=== PATIENT | female | born 1995 | race Caucasian/White ===

== ENCOUNTER 2020-09-08 12:45 | Inpatient (IN) | payer OTHER ==
[~2020-09-08] VITALS: Ht 162.6 cm; Wt 84.8 kg
[2020-09-08] MEDS ORDERED: RINGERS SOLUTION,LACTATED 1,000 ML IV PRN (13:00)
[2020-09-08] MEDS ORDERED: LIDOCAINE/PF 1% 30 ML VIAL SQ PRN (13:00)
[2020-09-08] MEDS ORDERED: FentaNYL CITRATE PF 100 MCG/2 ML VIAL IVP PRN (13:00)
[2020-09-08] MEDS ORDERED: CITRIC ACID/SODIUM CITRATE 30 ML SOLUTION UDCUP PO PRN (13:00)
[2020-09-08] MEDS ORDERED: METOCLOPRAMIDE HCL 5 MG/ML 2 ML VIAL IVP PRN (13:00)
[2020-09-08] MEDS ORDERED: PREN-217 PO (13:05)
[2020-09-08 13:11] VITALS: BP 141/73
[2020-09-08] MEDS: RINGERS SOLUTION,LACTATED 1,000 ML IV SCH ×2 (13:36→20:30)
[2020-09-08 13:39] LABS: BASOPHILS % (AUTO) 0.6 % (0.0-2.0); EOSINOPHILS % (AUTO) 0.9 % (1.0-6.0); HEMATOCRIT 31.7 % (36-46); HEMOGLOBIN 10.2 g/dL (12.0-16.0); LYMPHOCYTES # (AUTO) 1.7 K/uL (1.0-4.8); LYMPHOCYTES % (AUTO) 22.1 % (22.0-44.0); MEAN CORPUSCULAR HEMOGLOBIN 26.4 pg (26.0-34.0); MEAN CORPUSCULAR HGB CONC 32.2 G/dL (31.0-37.0); MEAN CORPUSCULAR VOLUME 82 fL (80-100); MONOCYTES # (AUTO) 0.9 K/uL (0.1-1.0); MONOCYTES % (AUTO) 11.2 % (2.0-9.0); NEUTROPHILS # (AUTO) 5.1 K/uL (1.8-7.7); NEUTROPHILS % (AUTO) 65.2 % (40.0-70.0); PLATELET COUNT (AUTO) 313 K/uL (150-450); RED BLOOD CELL COUNT(AUTO) 3.87 MIL/uL (4.00-5.20); RED CELL DISTRIBUTION WIDTH 16.1 % (11.5-14.5)
[2020-09-08 13:57] LABS: ANION GAP 14 mmol/L (8-16); CALCIUM, TOTAL 9.2 mg/dL (8.8-10.5); CARBON DIOXIDE 20 mmol/L (22-29); CHLORIDE 102 mmol/L (98-107); CREATININE 0.68 mg/dL (0.60-1.30); GLOMERULAR FILTR. RATE CALC > 60 mL/min (>60); GLUCOSE,RANDOM 77 mg/dL (70-110); POTASSIUM 4.1 mmol/L (3.5-5.1); SODIUM SERUM 136 mmol/L (136-145); UREA NITROGEN, BLOOD 15 mg/dL (7-18)
[2020-09-08 14:03] LABS: ALANINE AMINOTRANSFERASE 17 U/L (12-78); ALBUMIN 2.6 g/dL (3.4-5.0); ALKALINE PHOSPHATASE 232 U/L (46-116); ASPARTATE AMINOTRANSFERASE 19 U/L (15-37); BILIRUBIN,TOTAL 0.1 mg/dL (0.1-1.0); TOTAL PROTEIN, SERUM 7.1 g/dL (6.4-8.2); URIC ACID 4.3 mg/dL (2.6-7.2)
[2020-09-08] MEDS ORDERED: RINGERS SOLUTION,LACTATED 1,000 ML IV SCH (14:15)
[2020-09-08] MEDS ORDERED: MISOPROSTOL 50 MCG TABLET PO SCH ×2 (14:15→18:45)
[2020-09-08] MEDS ORDERED: MISOPROSTOL 50 MCG TABLET VG SCH (14:15)
[2020-09-08] MEDS ORDERED: ACETAMINOPHEN 325 MG TABLET PO ONE (15:00)
[2020-09-08] MEDS ORDERED: INFLUENZA VIRUS VACCINE QVS 2020-21 (6MO+)/PF 60 MCG/0.5 ML SYRINGE IM ONE (15:15)
[2020-09-08] MEDS ORDERED: MISOPROSTOL 50 MCG TABLET PO ONE (18:45)
[2020-09-08] MEDS ORDERED: OXYGEN THERAPY IH SCH (20:00)
[2020-09-08 20:11] LABS: COVID AG,FIA SOURCE NASOPHARYNGEAL
[2020-09-08] MEDS ORDERED: OXYTOCIN 30 UNITS/LACT RINGERS 500 ML IV PRN (23:15)
[2020-09-09] MEDS ORDERED: ONDANSETRON HCL 4 MG/2 ML VIAL IVP PRN (04:00)
[2020-09-09] MEDS ORDERED: DiphenhydrAMINE HCL 50 MG/ML VIAL IVP PRN (04:00)
[2020-09-09] MEDS: RINGERS SOLUTION,LACTATED 1,000 ML IV SCH ×3 (05:43→18:45)
[2020-09-09] MEDS ORDERED: ACETAMINOPHEN 325 MG TABLET PO ONE (08:15)
[2020-09-09] MEDS ORDERED: ROPIVACAINE HCL/PF 0.2% 100 ML ED ONE (15:14)
[2020-09-09] MEDS: ROPIVACAINE HCL/PF 0.2% 100 ML ED PRN (22:36)
[2020-09-10] MEDS: RINGERS SOLUTION,LACTATED 1,000 ML IV SCH (01:58)
[2020-09-10] MEDS ORDERED: OXYTOCIN 30 UNITS/LACT RINGERS 500 ML IV ONE ×2 (02:00→06:15)
[2020-09-10] MEDS ORDERED: AMPICILLIN SODIUM 2 GM/NS 100 ML IV ONE (02:00)
[2020-09-10] MEDS: ROPIVACAINE HCL/PF 0.2% 100 ML ED PRN (03:37)
[2020-09-10] MEDS ORDERED: MISOPROSTOL 100 MCG TABLET ONE (05:57)
[2020-09-10] MEDS ORDERED: AMPICILLIN SODIUM 1 GM/NS 50 ML IV SCH (06:00)
[2020-09-10] MEDS ORDERED: BENZOCAINE 20%/MENTHOL 56 GM SPRAY CANISTER TP PRN (06:15)
[2020-09-10] MEDS ORDERED: OxyCODONE HCL/ACETAMINOPHEN 5-325 MG TABLET PO PRN ×2 (06:15)
[2020-09-10] MEDS ORDERED: MAGNESIUM HYDROXIDE SUSPENSION 30 ML UDCUP PO PRN (06:15)
[2020-09-10] MEDS ORDERED: LANOLIN 7 GM OINTMENT TP PRN (06:15)
[2020-09-10] MEDS ORDERED: LIDOCAINE/PF 1% 30 ML VIAL SQ PRN (06:15)
[2020-09-10] MEDS ORDERED: GLYCERIN/WITCH HAZEL LEAF 40 PADS JAR TP PRN (06:15)
[2020-09-10] MEDS ORDERED: MISOPROSTOL 100 MCG TABLET PR ONE (07:00)
[2020-09-10] MEDS ORDERED: MISOPROSTOL 100 MCG TABLET PR PRN (07:00)
[2020-09-10] MEDS: IBUPROFEN 800 MG TABLET PO PRN ×2 (15:35→21:26)
[2020-09-11 07:17] LABS: BASOPHILS % (AUTO) 0.3 % (0.0-2.0); EOSINOPHILS % (AUTO) 1.8 % (1.0-6.0); HEMATOCRIT 26.4 % (36-46); HEMOGLOBIN 8.5 g/dL (12.0-16.0); LYMPHOCYTES # (AUTO) 2.5 K/uL (1.0-4.8); MEAN CORPUSCULAR HEMOGLOBIN 26.3 pg (26.0-34.0); MEAN CORPUSCULAR HGB CONC 32.1 G/dL (31.0-37.0); MEAN CORPUSCULAR VOLUME 82 fL (80-100); MONOCYTES # (AUTO) 1.6 K/uL (0.1-1.0); MONOCYTES % (AUTO) 9.8 % (2.0-9.0); NEUTROPHILS # (AUTO) 12.2 K/uL (1.8-7.7); NEUTROPHILS % (AUTO) 73.1 % (40.0-70.0); PLATELET COUNT (AUTO)-OB 237 K/uL (150-450); RED BLOOD CELL COUNT(AUTO) 3.22 MIL/uL (4.00-5.20); RED CELL DISTRIBUTION WIDTH 16.3 % (11.5-14.5)
[2020-09-11] MEDS ORDERED: FERR-89 PO (12:12)
[2020-09-11] MEDS ORDERED: IBUP-2070 PO (12:12)
== END 2020-09-11 12:30 | disposition home or self-care (01) | DRG 807 ==
LOC: 4S 12:45 → OBSVTOIN 12:45
PROVIDERS: ADMIT Obstetrics & Gynecology; ATTEND Obstetrics & Gynecology
PROC: 10E0XZZ Delivery of Products of Conception, External Approach (ICD-10-PCS; principal; 2020-09-10)
PROC: 0KQM0ZZ Repair Perineum Muscle, Open Approach (ICD-10-PCS; 2020-09-10)
PROC: 10907ZC Drainage of Amniotic Fluid, Therapeutic from Products of Conception, Via Natural or Artificial Opening (ICD-10-PCS; 2020-09-10)
PROC: 3E0R3BZ Introduction of Anesthetic Agent into Spinal Canal, Percutaneous Approach (ICD-10-PCS; 2020-09-10)
PROC: 00HU33Z Insertion of Infusion Device into Spinal Canal, Percutaneous Approach (ICD-10-PCS; 2020-09-10)
DX: O14.04 Mild to moderate pre-eclampsia, complicating childbirth (principal); Z37.0 Single live birth; O70.1 Second degree perineal laceration during delivery; Z3A.39 39 weeks gestation of pregnancy; Z20.822 Contact with and (suspected) exposure to COVID-19
CPT/HCPCS: 84550; 86850; 86900; 86901; 87426; 90686; A9575; J0290; J2590; J2795; J7120